=== PATIENT | female | born 1995 | race Caucasian/White ===

== ENCOUNTER 2019-08-07 17:57 | Emergency (ER) | payer OTHER, SELFPAY ==
[2019-08-07 19:57] LABS: Urine Blood TRACE (NEG); Urine Glucose NEGATIVE (NEG); Urine Protein NEGATIVE (NEG)
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
--- NOTE | 2019-08-07 20:50 | RAD REPORT ---
EXAM DESCRIPTION: Javier Tabares (2 Views)08/07/2019 8:40 pm CLINICAL HISTORY: Chest pain COMPARISON: 2010 FINDINGS: The lungs appear clear of acute infiltrate. The heart is normal size IMPRESSION: No acute abnormalities displayed
--- NOTE | 2019-08-07 20:51 | RAD REPORT ---
EXAM DESCRIPTION: RAD - Knee Right 3 View - 08/07/2019 8:41 pm CLINICAL HISTORY: Right knee pain status post injury FINDINGS: No fracture or dislocation is seen.
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
[2019-08-07 23:00] VITALS: BP 124/95; TEMP 98.9; O2SAT 98
== END 2019-08-07 22:08 | disposition home or self-care (01) ==
LOC: ER 17:57
DX: S13.4XXA Sprain of ligaments of cervical spine, initial encounter (principal); G89.11 Acute pain due to trauma; V49.50XA Passenger injured in collision with unspecified motor vehicles in traffic accident, initial encounter; F34.1 Dysthymic disorder; Z88.1 Allergy status to other antibiotic agents; Z91.038 Other insect allergy status; Z91.040 Latex allergy status
CPT/HCPCS: 70450; 71046; 72125; 81003; 81025; 99284